=== PATIENT | female | born 1985 | race American Indian/Alaskan Native ===

== ENCOUNTER 2019-04-05 11:14 | Emergency (ER) | payer MEDICAID ==
[2019-04-05] MEDS ORDERED: CATAPRES PO ONE (11:46)
--- NOTE | 2019-04-05 11:52 | Emergency Department Report ---
ED Abdominal Pain HPI - General Chief Complaint: Abdominal Pain Stated Complaint: SEVERE ABD PAIN Time Seen by Provider: 04/05/19 11:41 Source: EMS Mode of arrival: Stretcher Limitations: No Limitations - History of Present Illness Initial Comments: Patient is 33 years old female brought to the emergency room from [facility] for evaluation of lower abdominal pain, left flank pain, vaginal bleeding and dysuria and frequency for the last 2 days. Patient denied any nausea or vomiting. No diarrhea. Patient also denies any fever or chills. MD Complaint: abdominal pain, flank pain -: Last night Location: suprapubic, L flank Radiation: none Migration to: no migration Severity: moderate Quality: cramping Consistency: constant - Related Data Previous Rx's Medication Instructions Recorded Last Taken Type Ciprofloxacin HCl [Ciprofloxacin 500 mg PO Q12HR #14 tab 04/05/19 Unknown Rx TAB] Ondansetron [Zofran Odt] 4 mg PO Q8HR PRN #14 tab.rapdis 04/05/19 Unknown Rx metroNIDAZOLE [Flagyl] 500 mg PO Q12HR #14 tab 04/05/19 Unknown Rx traMADol [Ultram] 50 mg PO Q6HR PRN #14 tablet 04/05/19 Unknown Rx Allergies Allergy/AdvReac Type Severity Reaction Status Date / Time No Known Allergies Allergy Verified 04/05/19 11:22 ED Review of Systems ROS: Stated complaint: SEVERE ABD PAIN Other details as noted in HPI Comment: All other systems reviewed and negative Constitutional: denies: chills, fever Respiratory: denies: cough, orthopnea, shortness of breath, SOB with exertion, SOB at rest, wheezing Cardiovascular: denies: chest pain, palpitations Gastrointestinal: abdominal pain. denies: nausea, vomiting, diarrhea, constipation, hematemesis, melena, hematochezia Genitourinary: urgency, dysuria, frequency, abnormal menses Musculoskeletal: back pain Neurological: denies: headache, weakness, numbness, paresthesias, confusion, abnormal gait ED Past Medical Hx - Past Medical History Previous Medical History?: Yes Hx Hypertension: Yes Hx Psychiatric Treatment: Yes - Medications Home Medications: Home Medications Medication Instructions Recorded Confirmed Last Taken Type Ciprofloxacin HCl [Ciprofloxacin 500 mg PO Q12HR #14 tab 04/05/19 Unknown Rx TAB] Ondansetron [Zofran Odt] 4 mg PO Q8HR PRN #14 tab.rapdis 04/05/19 Unknown Rx metroNIDAZOLE [Flagyl] 500 mg PO Q12HR #14 tab 04/05/19 Unknown Rx traMADol [Ultram] 50 mg PO Q6HR PRN #14 tablet 04/05/19 Unknown Rx ED Physical Exam - General Limitations: No Limitations General appearance: alert, in no apparent distress - Head Head exam: Present: atraumatic, normocephalic, normal inspection - Eye Eye exam: Present: normal appearance, PERRL - ENT ENT exam: Present: normal exam, normal orophraynx, mucous membranes moist - Neck Neck exam: Present: normal inspection, full ROM. Absent: tenderness, meningis mus, lymphadenopathy, thyromegaly - Respiratory Respiratory exam: Present: normal lung sounds bilaterally - Cardiovascular Cardiovascular Exam: Present: regular rate, normal rhythm, normal heart sounds - GI/Abdominal GI/Abdominal exam: Present: soft, normal bowel sounds. Absent: distended, tenderness, guarding, rebound, rigid, organomegaly, mass, bruit, pulsatile mass, hernia - Extremities Exam Extremities exam: Present: normal inspection, full ROM, normal capillary refill. Absent: tenderness, pedal edema, calf tenderness - Back Exam Back exam: Present: normal inspection, full ROM. Absent: CVA tenderness (R) - Neurological Exam Neurological exam: Present: alert, oriented X3, CN II-XII intact, normal gait, reflexes normal - Skin Skin exam: Present: warm, intact, normal color ED Course Vital Signs 04/05/19 04/05/19 11:36 13:00 Temperature 99.8 F H Pulse Rate 90 63 Respiratory 16 18 Rate Blood Pressure 162/104 152/100 [Right] O2 Sat by Pulse 95 100 Oximetry ED Medical Decision Making - Lab Data Result diagrams: 04/05/19 11:50 04/05/19 11:50 - Radiology Data Radiology results: report reviewed CT abdomen and pelvis showed a bilateral ovarian cyst. Also showed nephrolithiasis. - Medical Decision Making Patient is 33 years old female brought to the emergency room from [facility] for evaluation of lower abdominal pain, left flank pain, vaginal bleeding and dysuria and frequency for the last 2 days. Patient denied any nausea or vomiting. No diarrhea. Patient also denies any fever or chills. Patient stated that she is feeling much better. Labs reviewed and is unremarkable except for high white blood cells 15,000. Patient had a CT abdomen and pelvis with IV contrast showed bilateral ovarian cyst and nephrolithiasis. No clinical evidence of acute appendicitis. No right lower quadrant tenderness and negative McBurney sign. Patient advised to follow-up with urologist and her primary care physician in the next 2-3 days and to return to the ER if symptoms are not improved. Critical care attestation.: If time is entered above; I have spent that time in minutes in the direct care of this critically ill patient, excluding procedure time. ED Disposition Clinical Impression: Abdominal pain, Kidney stone, Ovarian cyst Disposition: TO HOME OR SELFCARE Is pt being admited?: No Condition: Stable Instructions: Ovarian Cyst (ED), Kidney Stones (ED), Abdominal Pain (ED) Prescriptions: Ciprofloxacin HCl [Ciprofloxacin TAB] 500 mg PO Q12HR #14 tab metroNIDAZOLE [Flagyl] 500 mg PO Q12HR #14 tab traMADol [Ultram] 50 mg PO Q6HR PRN #14 tablet PRN Reason: Pain Ondansetron [Zofran Odt] 4 mg PO Q8HR PRN #14 tab.rapdis PRN Reason: Nausea And Vomiting Referrals: JOLANTA VIEIRA MD [Primary Care Provider] - 3-5 Days
[2019-04-05 12:08] LABS: Hematocrit 40.6 % (30.3-42.9); Hemoglobin 13.8 gm/dl (10.1-14.3); Mean Corpuscular HGB Conc 34 % (30-34); Mean Corpuscular Volume 95 fl (79-97); Platelet Count 224 K/mm3 (140-440); Red Blood Count 4.27 M/mm3 (3.65-5.03); Red Cell Distribution Width 13.8 % (13.2-15.2)
[2019-04-05 12:17] LABS: BUN/Creatinine Ratio 40; Blood Urea Nitrogen 16 mg/dL (7-17); Calcium 9.1 mg/dL (8.4-10.2); Hemolysis Index 111
[2019-04-05 12:47] LABS: Bilirubin,Urine NEG (Negative); Blood,Urine MOD (Negative); Color,Urine Yellow (Yellow); Mucus,Urine FEW /HPF
[2019-04-05 13:12] LABS: Basophils % (Manual) 0 % (0.0-1.8); Eosinophils % (Manual) 0 % (0.0-4.3); Platelet Estimate Consistent w Auto; RBC Morphology Normal; Total Cells Counted 100
[2019-04-05] MEDS ORDERED: MORPHINE IV ONE ×3 (14:58→16:37)
[2019-04-05] MEDS ORDERED: ZOFRAN IV ONE ×3 (14:58→16:37)
--- NOTE | 2019-04-05 15:49 | Cat Scan Report ---
CT ABDOMEN PELVIS WITH CONTRAST: HISTORY: abdominal pain. COMPARISON: none. TECHNIQUE: Helical CT in 1.25mm intervals following IV contrast. Sagittal and coronal reconstructions. FINDINGS: Lung bases: Minor linear atelectasis in the lower lobes. Liver: Mild hepatomegaly. No parenchymal disease or focal mass. Biliary system: Cholecystectomy. Pancreas: Normal. Spleen: Normal. Kidneys/ureters/bladder: This is an IV contrast exam but there appears to be scattered calyceal stones in both kidneys. No hydronephrosis. Normal bladder. Adrenal glands: Normal. Aorta: Normal. Intestines: Within normal limits given oral contrast was administered. Appendix: Not confidently identified. Pelvic viscera: There is a large cyst in the right adnexa measuring up to 5.8 cm which is presumably ovarian in origin. A 2 cm left ovarian cyst is also identified. The uterus is unremarkable. Ascites: None. Adenopathy: None. Musculoskeletal: Normal. IMPRESSION: Bilateral ovarian cysts, right greater than left. See above. Mild hepatomegaly. Bilateral nephrolithiasis is suspected. No hydronephrosis.
[2019-04-05] MEDS ORDERED: ROCEPHIN/NS 1 GM/50 ML 1 GM/50 ML BAG IV ONE (15:53)
[2019-04-05 16:10] VITALS: BP 145/92
== END 2019-04-05 17:31 | disposition home or self-care (01) ==
LOC: ED 11:14
DX: N83.202 Unspecified ovarian cyst, left side (principal); N83.201 Unspecified ovarian cyst, right side; N20.0 Calculus of kidney; I10 Essential (primary) hypertension
CPT/HCPCS: 36415; 74177; 80048; 81001; 84703; 85007; 85025; 96365; 96375; 96376; 99285; J0696; J2270; J2405; Q9967